=== PATIENT | male | born 1990 ===

== ENCOUNTER 2020-05-10 14:11 | Outpatient (CLI) | payer MEDICAID ==
[~2020-05-10] VITALS: Ht 167.6 cm; Wt 53.5 kg
[2020-05-10 14:33] VITALS: BP 118/59
[2020-05-11] MEDS ORDERED: ZINC50 MG ORAL (08:48)
[2020-05-11] MEDS ORDERED: MULTIVITAMINS1 EAC2 ORAL (08:48)
[2020-05-11] MEDS ORDERED: NAPROXEN250 MG ORAL (08:48)
[2020-05-11] MEDS ORDERED: VITAMIN C500 M1 ORAL (08:48)
[2020-05-11] MEDS ORDERED: OMEGA-31000 M1 PO (08:48)
== END 2020-05-10 16:11 | disposition home or self-care (01) ==
LOC: PAN 14:11
DX: R10.9 Unspecified abdominal pain (principal)
CPT/HCPCS: 99203